=== PATIENT | female | born 1995 | race Caucasian/White ===

== ENCOUNTER 2020-09-28 14:57 | Emergency (ER) | payer SELFPAY ==
[2020-09-28] VITALS (7 sets, daily range): BP systolic 111–121; BP diastolic 78–84; PULSE 99–114; RESP 16–22; TEMP 36.8; O2SAT 96–98; BMI 18.8
--- NOTE | 2020-09-28 15:33 | CTR_ITS ---
PROCEDURE INFORMATION: Exam: CT Neck With Contrast Exam date and time: 09/28/2020 3:42 PM Age: 25 years old Clinical indication: Mass, lump, or swelling in neck; Patient HX: Lt side of jaw red and swollen; Additional info: Abcess mandible. Neck TECHNIQUE: Imaging protocol: Computed tomography images of the neck with contrast. Total images: 249 Radiation optimization: All CT scans at this facility use at least one of these dose optimization techniques: automated exposure control; mA and/or kV adjustment per patient size (includes targeted exams where dose is matched to clinical indication); or iterative reconstruction. Contrast material: OMNI 300; Contrast volume: 95 ml; Contrast route: INTRAVENOUS (IV); COMPARISON: No relevant prior studies available. RADIATION DOSE METRICS: Total DLP (mGy-cm): 342.14 FINDINGS: Nasopharynx: Unremarkable. Dental: Large dental devika involving the 2nd left mandibular molar with associated periapical (radicular) cyst. No definite evidence of associated osteomyelitis. Large dental caries involving the right mandibular 3rd molar and 2nd right maxillary molar. Small periapical (radicular) cyst 2nd and 3rd left maxillary molars with associated dental caries. Oropharynx: Unremarkable. No significant tonsillar enlargement. Hypopharynx: Unremarkable. Larynx: Unremarkable. Normal epiglottis. Retropharyngeal space: Unremarkable. Submandibular/Parotid glands: No visible evidence of active pathologic process. No visible evidence of active inflammation. Thyroid: Small 3 mm nodule left thyroid gland. No follow-up recommended. Lymph nodes: Reactive submandibular, submental, and left jugular digastric lymphadenitis/lymphadenopathy without evidence for suppurative lymphadenitis. Trachea: Visualized trachea is unremarkable. Lungs: Unremarkable as visualized. Bones/joints: No visible acute osseous abnormality or fracture. Vasculature: No evidence of associated Lemierre's Syndrome. No findings of suppurative thrombophlebitis in the neck of either the jugular vein or carotid artery. Soft tissues: Examination reveals a large complex multiloculated cystic mass left submandibular space most likely reflecting a complex abscess. Dimensions are approximately 4.7 cm x 2.5 cm x 4.6 cm. Associated focal mass effect displacing the left submandibular gland. CT/CT neck w con* [id number] IMPRESSION: 1. Examination reveals a large complex multiloculated cystic mass left submandibular space most likely reflecting a complex abscess. Dimensions are approximately 4.7 cm x 2.5 cm x 4.6 cm. Associated focal mass effect displacing the left submandibular gland. 2. Numerous dental caries, as detailed in text above, to include a large dental devika involving the 2nd left mandibular molar with associated periapical (radicular) cyst most likely the origin of the abscess. 3. No definite visible evidence of active osteomyelitis. 4. Reactive lymphadenitis/lymphadenopathy. COMMENTS: Consistent with the [employer]'s Incidental Findings Committee white paper (J Am Nora Radiol 2015): In patients under 35 years old with an incidental thyroid nodule equal to or greater than [address], MRI or extrathyroidal US, further evaluation with dedicated thyroid US is recommended for patients with normal life expectancy and without comorbidities. For smaller nodules without suspicious features, no further evaluation or follow up is recommended. Radiation Dose CTDIVOL = (mGy): DLP = 342.14 (mGy-cm)
--- NOTE | 2020-09-28 15:38 | ED_ITS ---
Documented by User: NATASHA Parks 09/28/20 15:40 HPI - General Adult General: Chief complaint: Dental/Oral Stated complaint: Toothache/Pain In Mouth Time Seen by Provider: 09/28/20 15:25 History of Present Illness: HPI narrative: Patient presents with swelling and tenderness to the left side of face mandible area times a week. Has been treated with the penicillin that was also given a Rocephin shot today after she started penicillin and it has not improved. Onset (ago): day(s) Location: face Radiation: neck Severity: moderate Severity scale (1-10): 4 Quality: aching Pain Consistency: constant Relieving factors: none Exacerbating factors: movement Associated symptoms: Reports no associated symptoms; Deny chest pain, dyspnea, headache(s), nausea, rash or vomiting Review of Systems Const: Denies: fever(s), chills or body aches Eyes: Denies: change in vision or blurry vision ENMT: Reports: other (Was treated for dental abscess that is worsened.); Denies: throat pain or nasal congestion Card: Denies: chest pain or dyspnea on exertion Resp: Denies: dyspnea, productive cough or non-productive cough GI: Denies: abdominal pain, nausea or vomiting Musc: Denies: extremity pain Skin/Breast: Denies: rash Neuro: Denies: headache(s) Psych: Denies: anxiety or depression Michael/Lymph: Denies: easy bruising [facility] PFSH: Medical History (Updated 09/28/20 @ 21:55 by Aaron Hyde MD, [facility]) Dental infection Female Reproductive History: Date of last menstrual period: 09/06/20 Physical Exam Const: COMMON NORMALS: no acute distress, average body habitus and patient oriented x3 HENMT: COMMON NORMALS: normocephalic HEAD & SCALP: normal to inspection and normocephalic FACE & SINUS: Facial tenderness on exam of face and sinuses on the left mandible (Tender, skin taut, erythema, can open mouth some) Eye: COMMON NORMALS: conjunctivae normal GENERAL EYE: appearance normal, both eyes and all related structures CONJUNCTIVA: Yes conjunctivae normal Neck/C-Spine: COMMON NORMALS: no JVD Chest: COMMONS NORMALS: normal inspection of the chest Resp: COMMON NORMALS: normal respiratory effort and clear to auscultation bilaterally AUSCULTATION: clear to auscultation bilaterally Cardio: COMMON NORMALS: no JVD and regular rhythm RATE: tachycardic RHYTHM: regular rhythm GI: COMMON NORMALS: Normal to inspection, nondistended, normoactive bowel sounds present Extremity: COMMON NORMALS: normal to inspection and full ROM Neuro: COMMON NORMALS: patient oriented x3 Course Vital Signs: Vital signs: Vital Signs Temperature 98.2 F 09/28/20 15:00 Pulse Rate 99 09/28/20 21:11 Respiratory Rate 18 09/28/20 21:19 Blood Pressure 111/78 09/28/20 19:25 Pulse Oximetry 96 09/28/20 21:19 [facility] - General Adult Lab Data: Labs: Lab Results 09/28/20 09/28/20 09/28/20 Range/Units 15:50 15:50 15:50 WBC 12.9 H (4.0-10.0) 10^3/ uL RBC 4.28 (4.1-5.3) 10^6/u L Hgb 11.8 (11.5-15.3) g/dL Hct 35.8 L (37.0-47.0) % MCV 83.6 (81-99) fL MCH 27.6 L (28.0-34.0) pg MCHC 33.0 (30.0-36.0) g/dL RDW 12.0 L (12.1-15.1) % Plt Count 342 (130-400) 10^3/c mm MPV 9.8 (7.4-10.4) fL Neut % (Auto) 80.1 % Lymph % (Auto) 9.9 % [place] % (Auto) 8.1 % Eos % (Auto) 0.9 % Baso % (Auto) 0.5 % Neut # (Auto) 10.32 H (1.8-7.7) 10^3/u L Lymph # (Auto) 1.3 (0.8-4.8) 10^3/u L [place] # (Auto) 1.1 H (0.2-0.9) 10^3/u L Eos # (Auto) 0.1 (0.0-0.8) 10^3/u L Baso # (Auto) 0.1 (0.0-0.1) 10^3/u L Nucleated RBC % (a uto) 0 % Nucleated RBCs # 0.0 /100WBC Sodium 137 (136-145) mmol/L Potassium 4.1 (3.5-5.1) mmol/L Chloride 100 (98-107) mmol/L Carbon Dioxide 26 (22-29) mmol/L Anion Gap 15.1 (5-19) BUN 13 (6-20) mg/dL Creatinine 0.6 (0.5-0.9) mg/dL GFR Calculation 119.9 (90-130) mL/min Glucose 94 (65-115) mg/dL Calculated Osmolal ity 284 L (285-295) mOsm/k g Lactate 0.9 (0.5-2.2) mmol/L Calcium 9.3 (8.5-10.5) mg/dL Discharge Plan Discharge Patient Disposition: Xfer Short-Term Hosp Clinical Impression: [place]'s angina Condition: Stable Discharge Orders: Transfer Out of Facility (Order); Ordered 09/28/20 Ordered By: Aaron Hyde Referrals: Luna Siu FNP [Primary Care Provider] - Sign Out Sign Out Data: Patient Sign Out occurred on 09/28/20 at 17:33. Patient's care was discussed, and care was transferred from to Aaron Hyde MD, [facility]. Coding Level of Care Code ED Curriculum Assistant Principal for Chg Fwd Exam Comprehensive Documented by User: Aaron Hyde MD, [facility] 09/28/20 23:13 HPI - General Adult General: Chief complaint: Dental/Oral Stated complaint: Toothache/Pain In Mouth Time Seen by Provider: 09/28/20 15:25 PFSH ED PFSH: Medical History (Updated 09/28/20 @ 21:55 by Aaron Hyde MD, [facility]) Dental infection Course Reevaluation(s): Reevaluation #1: Discussed her lab and imaging findings with her. Discussed our concerns and the fact that there is no ENT in this facility today. Advised that she will need to be transferred to a facility that can provide the care that she needs and she opted to be transferred to [facility] in [place]. Consultations: Consultation #1: Dr. Pepper, hospitalist at [facility] kindly accepted the patient to his service. We have been in communication with [facility] for several hours and he has been trying to find the appropriate service to admit this patient to. They reviewed the imaging findings and agreed that the patient needed to be tr ansferred. Time: 21:47 Vital Signs: Vital signs: Vital Signs Temperature 98.2 F 09/28/20 15:00 Pulse Rate 99 09/28/20 21:11 Respiratory Rate 18 09/28/20 21:19 Blood Pressure 111/78 09/28/20 19:25 Pulse Oximetry 96 09/28/20 21:19 MDM - General Adult MDM Narrative: Medical decision making narrative: Kindly evaluate Taye Carpenter's note, nurse practitioner for a complete history and physical examination. Essentially this is a 25-year-old female patient with a progressively worsening dental abscess. She has been on 2 different sets of antibiotics with no improvement. She has had her left jaw area swelling gradually and now she is unable to open her mouth very much. She has difficulty swallowing but no difficulty breathing. She is able to swallow her saliva. On examination she has significant erythema, warmth, tenderness in the submandibular space on the left. CT scan of her soft tissue of her neck showed a complex abscess in the submandibular space on the left with displacement of the submandibular gland. ENT is not available in the hospital currently and so the hospitalist was not comfortable keeping her in the hospital as she will probably need incision and drainage. She was given IV antibiotics in the emergency department as well as intravenous corticosteroids. She is transferred to [facility] for further evaluation and management. She remained stable throughout her ED stay. Medical Records: Attestation: I reviewed the patient's medical records. Lab Data: Attestation: I reviewed the patient's lab results. Labs: Lab Results 09/28/20 09/28/20 09/28/20 Range/Units 15:50 15:50 15:50 WBC 12.9 H (4.0-10.0) 10^3/ uL RBC 4.28 (4.1-5.3) 10^6/u L Hgb 11.8 (11.5-15.3) g/dL Hct 35.8 L (37.0-47.0) % MCV 83.6 (81-99) fL MCH 27.6 L (28.0-34.0) pg MCHC 33.0 (30.0-36.0) g/dL RDW 12.0 L (12.1-15.1) % Plt Count 342 (130-400) 10^3/c mm MPV 9.8 (7.4-10.4) fL Neut % (Auto) 80.1 % Lymph % (Auto) 9.9 % [place] % (Auto) 8.1 % Eos % (Auto) 0.9 % Baso % (Auto) 0.5 % Neut # (Auto) 10.32 H (1.8-7.7) 10^3/u L Lymph # (Auto) 1.3 (0.8-4.8) 10^3/u L [place] # (Auto) 1.1 H (0.2-0.9) 10^3/u L Eos # (Auto) 0.1 (0.0-0.8) 10^3/u L Baso # (Auto) 0.1 (0.0-0.1) 10^3/u L Nucleated RBC % (a uto) 0 % Nucleated RBCs # 0.0 /100WBC Sodium 137 (136-145) mmol/L Potassium 4.1 (3.5-5.1) mmol/L Chloride 100 (98-107) mmol/L Carbon Dioxide 26 (22-29) mmol/L Anion Gap 15.1 (5-19) BUN 13 (6-20) mg/dL Creatinine 0.6 (0.5-0.9) mg/dL GFR Calculation 119.9 (90-130) mL/min Glucose 94 (65-115) mg/dL Calculated Osmolal ity 284 L (285-295) mOsm/k g Lactate 0.9 (0.5-2.2) mmol/L Calcium 9.3 (8.5-10.5) mg/dL Imaging Data^: Other CT: Attestation: I personally reviewed and interpreted this imaging study as follows: Radiologist's impression: [facility] [address] [place], [place] [address]GH Scan ReportSigned with Valentina Patient: Yelitza Jim #: [id number]: 1995Acct#:[id number]/Sex: 25 / FADM Date: 09/28/20Loc: ERRoom/Bed:Attending Dr: Ordering Provider/Ordering MD: Estevan Carpenter Sr, [facility]- Date of Service: 09/28/20 Procedure(s): CT neck w con* [id number] Accession Number(s): [id number] Report Number: [id number]/CT neck w con* [id number] THIS REPORT CONTAINS FINDINGS THAT MAY BE CRITICAL TO PATIENT CARE. The findings were verbally communicated via telephone conference with HERMILO CARPENTER at 4:46 PM CDT on 09/28/2020. The findings were acknowledged and understood. Radiation Dose CTDIVOL = (mGy): DLP = 342.14 (mGy-cm) Addendum Dictated By: Gutierrez ReyesAddendum Signed By: Wesley Reyes Date/Time:09/28/20 1702Addendum Cosigned By: PROCEDURE INFORMATION: Exam: CT Neck With Contrast Exam date and time: 09/28/2020 3:42 PM Age: 25 years old Clinical indication: Mass, lump, or swelling in neck; Patient HX: Lt side of jaw red and swollen; Additional info: Abcess mandible. Neck TECHNIQUE: Imaging protocol: Computed tomography images of the neck with contrast. Total images: 249 Radiation optimization: All CT scans at this facility use at least one of these dose optimization techniques: automated exposure control; mA and/or kV adjustment per patient size (includes targeted exams where dose is matched to clinical indication); or iterative reconstruction. Contrast material: OMNI 300; Contrast volume: 95 ml; Contrast route: INTRAVENOUS (IV); COMPARISON: No relevant prior studies available. RADIATION DOSE METRICS: Total DLP (mGy-cm): 342.14 FINDINGS: Nasopharynx: Unremarkable. Dental: Large dental devika involving the 2nd left mandibular molar with associated periapical (radicular) cyst. No definite evidence of associated osteomyelitis. Large dental caries involving the right mandibular 3rd molar and 2nd right maxillary molar. Small periapical (radicular) cyst 2nd and 3rd left maxillary molars with associated dental caries. Oropharynx: Unremarkable. No significant tonsillar enlargement. Hypopharynx: Unremarkable. Larynx: Unremarkable. Normal epiglottis. Retropharyngeal space: Unremarkable. Submandibular/Parotid glands: No visible evidence of active pathologic process. No visible evidence of active inflammation. Thyroid: Small 3 mm nodule left thyroid gland. No follow-up recommended. Lymph nodes: Reactive submandibular, submental, and left jugular digastric lymphadenitis/lymphadenopathy without evidence for suppurative lymphadenitis. Trachea: Visualized trachea is unremarkable. Lungs: Unremarkable as visualized. Bones/joints: No visible acute osseous abnormality or fracture. Vasculature: No evidence of associated Lemierre's Syndrome. No findings of suppurative thrombophlebitis in the neck of either the jugular vein or carotid artery. Soft tissues: Examination reveals a large complex multiloculated cystic mass left submandibular space most likely reflecting a complex abscess. Dimensions are approximately 4.7 cm x 2.5 cm x 4.6 cm. Associated focal mass effect displacing the left submandibular gland. CT/CT neck w con* [id number] IMPRESSION: 1. Examination reveals a large complex multiloculated cystic mass left submandibular space most likely reflecting a complex abscess. Dimensions are approximately 4.7 cm x 2.5 cm x 4.6 cm. Associated focal mass effect displacing the left submandibular gland. 2. Numerous dental caries, as detailed in text above, to include a large dental devika involving the 2nd left mandibular molar with associated periapical (radicular) cyst most likely the origin of the abscess. 3. No definite visible evidence of active osteomyelitis. 4. Reactive lymphadenitis/lymphadenopathy. COMMENTS: Consistent with the [employer]'s Incidental Findings Committee white paper (J Am Nora Radiol 2015): In patients under 35 years old with an incidental thyroid nodule equal to or greater than [address], MRI or extrathyroidal US, further evaluation with dedicated thyroid US is recommended for patients with normal life expectancy and without comorbidities. For smaller nodules without suspicious features, no further evaluation or follow up is recommended. Radiation Dose CTDIVOL = (mGy): DLP = 342.14 (mGy-cm) Dictated By:Wesley Reyes By:Wesley Reyes Date/Time:09/28/201645DD/ 164 Discharge Plan Discharge Patient Disposition: Xfer Short-Term Hosp Clinical Impression: [place]'s angina Condition: Stable Discharge Orders: Transfer Out of Facility (Order); Ordered 09/28/20 Ordered By: Aaron Hyde Referrals: Luna Siu FNP [Primary Care Provider] - Sign Out Sign Out Data: Patient Sign Out occurred on 09/28/20 at 17:33. Patient's care was discussed, and care was transferred from to Aaron Hyde MD, [facility]. Coding Level of Care Code ED Curriculum Assistant Principal for [place] Fwd Exam Comprehensive
[2020-09-28] MEDS: iohexol 300 mg/mL 100 mL Btl IV (15:52)
[2020-09-28 16:07] LABS: Basophils # 0.1 10^3/uL (0.0-0.1); Basophils % 0.5 %; Eosinophils # 0.1 10^3/uL (0.0-0.8); Eosinophils % 0.9 %; Hematocrit 35.8 % (37.0-47.0); Hemoglobin 11.8 g/dL (11.5-15.3); Lymphocytes # 1.3 10^3/uL (0.8-4.8); Lymphocytes % 9.9 %; Mean Corpuscular Hemoglobin 27.6 pg (28.0-34.0); Mean Corpuscular Volume 83.6 fL (81-99); Mean Platelet Volume 9.8 fL (7.4-10.4); Monocytes # 1.1 10^3/uL (0.2-0.9); Monocytes % 8.1 %; Neutrophils # 10.32 10^3/uL (1.8-7.7); Neutrophils % 80.1 %; Nucleated Red Blood Cells % 0 %; Platelet Count 342 10^3/cmm (130-400); Red Blood Count 4.28 10^6/uL (4.1-5.3); White Blood Count 12.9 10^3/uL (4.0-10.0)
[2020-09-28] MEDS: morphine 4 mg/mL SDV 1 mL IVP ×2 (16:07→21:19)
[2020-09-28] MEDS: ampicillin-sulbactam 3 GM in sodium chloride 0.9% (plus) 50 ML IV (16:07)
[2020-09-28] MEDS: ondansetron 2 mg/ML SDV 2 mL 4 MG IVP (16:07)
[2020-09-28 16:31] LABS: Lactate (Lactic Acid level) 0.9 mmol/L (0.5-2.2)
[2020-09-28] MEDS: HYDROmorphone 1 mg/mL INJ 1 mL 0.5 MG IVP (17:02)
[2020-09-28] MEDS: sodium chloride 0.9% 1,000 ML 125 ML IV (17:03)
[2020-09-28] MEDS: clindamycin 600 MG/50 ML PREMIX 100 MG IV (17:03)
[2020-09-28 17:26] LABS: Anion Gap 15.1 (5-19); Blood Urea Nitrogen 13 mg/dL (6-20); Calcium 9.3 mg/dL (8.5-10.5); Carbon Dioxide 26 mmol/L (22-29); Chloride 100 mmol/L (98-107); Glomerular Filtration Rate 119.9 mL/min (90-130); Glucose 94 mg/dL (65-115); Osmolality Calculated 284 mOsm/kg (285-295); Potassium 4.1 mmol/L (3.5-5.1); Sodium 137 mmol/L (136-145)
--- NOTE | 2020-09-28 22:17 | PC.NURSE ---
report given to Demetra Perez at [facility].
[2020-09-29 00:32] VITALS: PULSE 110; RESP 20; O2SAT 98
== END 2020-09-28 23:00 | disposition short-term general hospital (02) ==
PROVIDERS: Nurse Practitioner Family; Emergency Provider Family Medicine; PCP Nurse Practitioner Family
DX: K12.2 Cellulitis and abscess of mouth (principal)
CPT/HCPCS: 70491; 80048; 83605; 85025; 96365; 96375; 96376; 99285; J0295; J1170; J2270; J2405; J2930; J3490; J7030; Q9967

== ENCOUNTER → 2021-05-28 11:58 | Outpatient (BNVA) | payer BC, SELFPAY | PROVIDERS: PCP Nurse Practitioner Family; Visit Provider Nurse Practitioner Family | DX: J06.9 Acute upper respiratory infection, unspecified (principal); K04.7 Periapical abscess without sinus | CPT/HCPCS: 87400; 87635 ==